=== PATIENT | male | born 1985 | race African-American/Black ===

== ENCOUNTER 2022-02-22 20:23 | Emergency (ER) | payer OTHER, SELFPAY ==
[2022-02-22] MEDS ORDERED: Boostrix 0.5 ML (Tdap) VIAL ONE (21:38)
[2022-02-22] MEDS ORDERED: Ketorolac Tromethamine 30 MG/ML VIAL ONE (21:38)
== END 2022-02-22 22:20 | disposition home or self-care (01) ==
LOC: CSHERS 20:23
DX: S51.812A Laceration without foreign body of left forearm, initial encounter (principal); Z20.822 Contact with and (suspected) exposure to COVID-19; W19.XXXA Unspecified fall, initial encounter
CPT/HCPCS: 12001; 90471; 90715; 96372; J1885